=== PATIENT | female | born 1985 | race Caucasian/White ===

== ENCOUNTER 2017-06-03 20:13 | Emergency (ER) | payer BC, MEDICAID, OTHER | END 2017-06-03 22:08 | disposition home or self-care (01) | LOC: ERS 20:13 | DX: L73.9 Follicular disorder, unspecified (principal); L73.1 Pseudofolliculitis barbae; F41.9 Anxiety disorder, unspecified; F32.9 Major depressive disorder, single episode, unspecified; F17.200 Nicotine dependence, unspecified, uncomplicated | CPT/HCPCS: 99406 ==

== ENCOUNTER 2017-06-21 16:18 | Emergency (ER) | payer BC, MEDICAID, OTHER ==
[2017-06-21 16:43] LABS: Bilirubin Negative (Negative); Blood, Urine Large (Negative); Clarity CLOUDY (Clear); Glucose, Urine (Dipstick) Negative (Negative); Leukocyte Negative (Negative); Nitrite Negative (Negative); Protein, Urine (Dipstick) Negative (Neg-Trace); Urobilinogen 0.2 mg/dL (0.2-1.0); pH, Urine 7.5 (5.0-9.0)
[2017-06-21 16:46] LABS: Bacteria/HPF Rare-Few HPF (None Seen); Hyaline Casts/LPF 0-3 HYALINE CAST LPF (0-3 Hyaline); RBC/HPF 21-50 HPF (0-3); Squamous Epithelial 0-3 HPF (0-3); WBC/HPF None Seen HPF (0-3)
[2017-06-21 16:56] LABS: #Basophils 0.1 thou/uL (0.0-0.2); #Eosinphils 0.3 thou/uL (0.0-0.7); #Lymphocytes 3.3 thou/uL (1.20-3.40); #Monocytes 0.7 thou/uL (0.11-0.59); #Neutrophils 10.9 thou/uL (1.40-6.50); %Basophils 0.5 % (0.0-1.0); %Eosinophils 2.1 % (0.0-10.0); %Lymphocytes 21.7 % (21.0-51.0); %Monocytes 4.4 % (0.0-10.0); %Neutrophils 71.3 % (42.0-75.0); Hemoglobin 14.8 g/dL (12.0-16.0); Mean Corpuscular HGB CONC 34.3 g/dL (32.0-36.0); Mean Corpuscular Hemoglobin 31.9 pg (27.0-31.0); Mean Corpuscular Volume 93.1 fl (81.0-99.0); Mean Platelet Volume 6.7 fL (7.4-10.4); Platelet Count 340 thou/uL (130-400); RBC Distribution Width 12.5 % (11.5-14.5); Red Blood Cell (RBC) Count 4.63 mill/uL (4.20-5.40); White Blood Cell (WBC) Count 15.4 thou/uL (4.8-10.8)
[2017-06-21 17:08] LABS: BHCG - Serum POSITIVE (NEGATIVE); Pregs Control Background? CLEAR/WHITE (CLR/WHITE); Pregs Control Bar Appear? YES (CONTROL BAR)
--- NOTE | 2017-06-21 17:22 | ULT ---
TRANSABDOMINAL PELVIC ULTRASOUND WITH COLOR FLOW AND SPECTRAL DOPPLER 06/21/17 HISTORY: Vaginal bleeding. FINDINGS: The uterus measures 11.1 x 7.9 x 9.3 cm. The right ovary measures 2.8 x 2.3 x 2 cm and the left ovary measures 3.2 x 3.1 x 1.7 cm. No adnexal mass is seen. Flow is demonstrated to both ovaries. No free fluid is identified. A single live intrauterine gestation is seen with a crown-rump length of 4.34 cm and gestational sac diameter of 5.17 cm. Estimated gestational age corresponds to 11 weeks, 1 day and PANKAJ at 01/09/18. Fet al heart rate measures 160 beats per minute. IMPRESSION: Single live IUP of 11 weeks, 1 day estimated gestational age and PANKAJ at 01/09/18. POS: BRUCE
[2017-06-26 01:08] LABS: Chlamydia by PCR Not Detected (NotDetected); GC by PCR Not Detected (NotDetected)
== END 2017-06-21 17:30 | disposition home or self-care (01) ==
LOC: ERS 16:18
DX: O20.0 Threatened abortion (principal); F41.9 Anxiety disorder, unspecified; F32.9 Major depressive disorder, single episode, unspecified; F17.210 Nicotine dependence, cigarettes, uncomplicated; Z3A.11 11 weeks gestation of pregnancy
CPT/HCPCS: 36415; 76856; 81003; 81015; 84702; 84703; 85025; 86850; 86900; 86901; 87480; 87491; 87510; 87591; 87660; 93976

== ENCOUNTER 2017-12-25 13:44 | Inpatient (IN) | payer OTHER ==
[2017-12-25 14:19] VITALS: BMI 37.5
[2017-12-25 15:08] LABS: Amnisure Internal Control QC ACCEPTABLE (ACCEPTABLE); Amnisure Test RUPTURE DETECTED (No Rupture)
[2017-12-25] MEDS: Lactated Ringer's 1,000 ML IV SCH ×2 (15:45→17:17)
[2017-12-25] MEDS ORDERED: Ondansetron HCl/PF 4 MG/2 ML Vial IVP PRN (15:48)
[2017-12-25] MEDS ORDERED: Lidocaine 1% (PF) 30 ML VIAL SC PRN (15:48)
[2017-12-25] MEDS ORDERED: Promethazine HCl 25 MG/ML VIAL IM PRN (15:48)
[2017-12-25] MEDS ORDERED: Ibuprofen 800 MG TAB PO PRN (15:48)
--- NOTE | 2017-12-25 15:48 | PDOC.FPROB ---
FMR OB H&P: HPI - History of Present Illness Chief Complaint: loss of fluid Indentification: History of Present Illness: at 37.4 by 6.1wk sono here for loss of fluid. 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 It was clear/milky and she believes she lost about 1/3 of a cup. Denies contractions or VB. Also since gush of fluid has not felt baby move. Denies recent drug use or any other symptoms. Has a pertinent history smoking 1/2 PPD during , +UDS for marijuana, HR HPV (neg 16/18) , GBS+. Primary Care Physician: Dr. Blanchard FMR OB H&P: Current - Care : 3 Para: 1011 Gestational age: 37.4 Due date: 01/11/18 Dating Criteria: 6.1wk sono - OB Labs Blood type: O RH: positive Antibody Screen: negative HIV: negative RPR: negative HepBsAg: negative Rubella: immune Quad screen: unknown Urine drug screen: positive (marijuana) Gonorrhea: negative Chlamydia: negative Pap Smear: HR HPV, negative 16/18 1 hour gtt: failed 3 hour GTT: passed GBS: positive FMR OB H&P: History - Past Medical History PMH: Depression, Methamphetamine use - MENTAL HEALTH AIDE History MENTAL HEALTH AIDE History: 1. 2011: Elective AB 2. 2001: at 40 wks, 7lb9oz - Surgical History Sx History: Denies - Social History Social History: 1/2 ppd during , prior smoked 1PPD x15 years Denies drug use Denies etoh - Family History Family History: Denies FMR OB H&P: Medications - Current Home Medications: Medication Instructions Recorded Confirmed Type BuPROPion XL [Wellbutrin XL] 150 mg PO DAILY 12/25/17 12/25/17 History Allergies/Adverse Reactions: Allergies Allergy/AdvReac Type Severity Reaction Status Date / Time cephalexin [From Keflex] Allergy Intermediate Rash Verified 12/25/17 14:13 FMR OB H&P: ROS - Review of Systems General: denies: fever/chills, weight/appetite/sleep changes Eyes: denies: vision changes, double vision ENT: denies: nasal congestion, rhinorrhea Cardiovascular: denies: chest pain, edema, orthopnea Respiratory: denies: cough, congestion, shortness of breath Gastrointestinal: denies: abdominal pain, cramping, nausea, diarrhea Genitourinary (Female): reports: other (clear vaginal fluid loss). denies: vaginal bleeding, vaginal pressure Musculoskeletal: denies: redness, decrease range of motion, arthritis/ arthralgias Neurologic: denies: seizures, weakness Hematologic/Lymphatic: denies: prolonged or excessive bleeding FMR OB H&P: Vital Signs - Maternal Vital signs: Vital Signs - First Documented Temp Pulse Resp BP 98.1 F 86 16 137/85 12/25/17 14:11 12/25/17 14:11 12/25/17 14:11 12/25/17 14:11 - Heart Tones Baseline: 130 Variability: moderate Acceleration: absent Deceleration: absent Category: category 1 FMR OB H&P: Physical Exam - Physical Exam General: NAD, awake, alert and oriented HEENT: normocephalic and atraumatic, PERRLA, EOMI, MMM, conjunctiva clear, no scleral icterus Neck: supple, FROM Chest: no lesions Heart: normal S1/S2, no murmurs/rubs/gallops General: CTAB, no respiratory distress, good air movement Abdomen: gravid, non-tender Musculoskeletal: normal gait and station, pulses present Skin: no rash, good tugor, capillary refill <2 seconds Lymphatic: no unusual bruising or bleeding, no petechia Psychiatric: intact recent and remote memory, good judgement and insight FMR OB H&P: Results - Labs Lab results: Laboratory Results - last 24 hr 12/25/17 15:05 Amnio Swab Test RUPTURE DETECTED H FMR OB H&P: A/P - Problem List (1) Intrauterine Current Visit: Yes Status: Acute Code(s): Z34.90 - ENCNTR FOR SUPRVSN OF NORMAL , UNSP, UNSP TRIMESTER (2) Marijuana abuse Current Visit: Yes Status: Acute Code(s): F12.10 - CANNABIS ABUSE, UNCOMPLICATED (3) Positive GBS test Current Visit: Yes Status: Acute Code(s): B95.1 - STREPTOCOCCUS, GROUP B, CAUSING DISEASES CLASSD ELSWHR (4) Glucose intolerance Current Visit: Yes Status: Acute Code(s): E74.39 - OTHER DISORDERS OF INTESTINAL CARBOHYDRATE ABSORPTION (5) Depression Current Visit: Yes Status: Acute Code(s): F32.9 - MAJOR DEPRESSIVE DISORDER , SINGLE EPISODE, UNSPECIFIED (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 1. Pre-labor ROM, IOL -ROM at 1330 (12/25) -[facility] Cat I -2/50/-3 @1600 -Uterine irritability, no CTX as of now -[place] 3 -Plan: Plan to admit for IOL. Will give Cytotec 25mcg x1, reassess in 2 hours. If cervix favorable, will start on pitocin to induce contractions 2. GBS+ -Will start PCN ppx with pitocin -Continue q4hr until completion of delivery 3. Hx of UDS + for marijuana -Will reorder UDS 4. Glucose intolerance -Failed 1hrGTT, passed 3hr -No accuchecks needed at this time 5. Hx of Bacterial vaginitis s/p tx 6. Depression -Has been on wellbutrin, will hold for now while NPO 7. Smoking during -Counseled on tobacco cessation -Last growth U/S on 11/19 was at 61.7% 8. High risk HPV, Negative 16/18 -No intervention at this time -Will delinquency counselor on getting colposcopy This H&P was discussed with Dr. Benson who agree with the above documentation and plan. Attending Addendum - Attending Addendum Date/Time: 12/25/17 4247 I personally evaluated the patient and discussed the management with Dr. Plata. I agree with the History, Examination, Assessment and Plan documented above with any addition or exceptions noted below. After further discussion with Dr Heller we will reconsider the use of PNC fo GBS prophylaxis. We may choose vancomycin.
[2017-12-25] MEDS ORDERED: Misoprostol 100 MCG TAB ONE (16:00)
[2017-12-25] MEDS ORDERED: Misoprostol 100 MCG TAB VAG SCH (16:00)
[2017-12-25] MEDS ORDERED: Penicillin G Potassium 5 MILL.UNITS in Sodium Chloride 0.9% 100 ML IVPB SCH (16:00)
[2017-12-25 16:04] LABS: Mean Corpuscular HGB CONC 34.3 g/dL (32.0-36.0); Mean Corpuscular Hemoglobin 30.6 pg (27.0-31.0); Mean Platelet Volume 7.7 fL (7.4-10.4); Platelet Count 352 thou/uL (130-400); RBC Distribution Width 12.9 % (11.5-14.5); Red Blood Cell (RBC) Count 3.94 mill/uL (4.20-5.40); White Blood Cell (WBC) Count 10.5 thou/uL (4.8-10.8)
[2017-12-25 16:41] LABS: Amphetamine Not Detected (NotDetected); Barbiturates Screen Not Detected (NotDetected); Benzodiazepine Screen Not Detected (NotDetected); Cocaine Metabolite Screen Not Detected (NotDetected); Medtox Reader # READER 1; Methadone Not Detected (NotDetected); Methamphetamine Not Detected (NotDetected); Opiate Screen Not Detected (NotDetected); Oxycodone Screen Not Detected (NotDetected); Phencyclidine (PCP) Not Detected (NotDetected); THC/Cannabinoid Screen Not Detected (NotDetected); Tricyclic Screen Not Detected (NotDetected)
[2017-12-25 16:42] LABS: Medtox Control Line Valid? VALID (VALID)
[2017-12-25 16:42] LABS: HBSAg Index 0.18 S/CO (0-0.99); Hep B Surf Ag Non-Reactive S/CO (NonReactive); Syphilis Antibody Nonreactive (Nonreactive); Syphilis Antibody Index 0.04 S/CO (<1.00 Non-Reactive)
[2017-12-25] MEDS ORDERED: Bupivacaine 0.5% 20 ML, fentaNYL Citrate/PF 400 MCG in Sodium Chloride 0.9% 72 ML EPIDURAL SCH (18:00)
[2017-12-25] MEDS ORDERED: DISCONTINUE ALL PREVIOUS NARCOTICS FS SCH (18:00)
--- NOTE | 2017-12-25 20:45 | PDOC.LDPN ---
Labor & Delivery Progress Note - Subjective Subjective: comfortable, painful contractions - Objective Vital signs reviewed and normal: yes General: resting Dilation: 7 Effacement: 90% Station: -1 FHT: category 1 [place] contractions every: 4min Resuscitative measures: maternal IV fluids - Assessment (1) Intrauterine Code(s): Z34.90 - ENCNTR FOR SUPRVSN OF NORMAL , UNSP, UNSP TRIMESTER Status: Acute Plan: continue plan of care -: Pt had one SBP 147 but returned back to 130's pt reports some continued discomfort with contractions will monitor. recheck for cervical dialation in 2 hours <Angel Yu - Last Filed: 12/25/17 20:43> Attending Addendum - Attending Addendum Date/Time: 12/25/172039 I personally evaluated the patient and discussed the management with Dr. Yu and Dr. Matt I agree with the History, Examination, Assessment and Plan documented above with any addition or exceptions noted below. 32 yo female at 37.4 wks by 6.1 wk sono admitted for PROM. Doing well. Epidural for pain control. Cephalic. On Vanc for GBS ppx and beta lactam allergy. FHT cat 1. Now 7 cm. s/p miso x 1. Now with spontaneous regular contractions. No VB. Elevated BP x1. Asymptomatic. Will continue to monitor closely. If continues will workup for preeclampsia/gHTN. hx of glucose intolerance. POC WNL. Repeat exam in 2 hours. ABrayMD <Edwige Heller - Last Filed: 12/29/17 13:44>
[2017-12-25] MEDS ORDERED: Vancomycin HCl 1 GM in Premix Bag 1 BAG IVPB SCH (21:00)
[2017-12-25] MEDS ORDERED: Penicillin G 2.5 MILL.units 2.5 MILL.UNITS in Premix Bag 1 BAG IVPB SCH (21:00)
[2017-12-25] MEDS: NS / Oxytocin 40 units/1000ml 1,000 ML IV PRN ×2 (21:24→23:55)
--- NOTE | 2017-12-25 22:06 | PDOC.OPDEL ---
OB Operative/Delivery Note Delivery Dr/Surgeon: Rogerio Yu Bray Pre-Delivery Diagnosis: active labor Procedure/Post Delivery Dx: spontaneous vaginal delivery Weeks gestation: 37 (37.4) Anesthesia: epidural - Additional Findings/Plan Placenta delivered: spontaneous Repaired Obstetrical Laceration: periurethral (repaired with three interupted sutres) Estimated blood loss: 271 Compilations/Other Findings: Delivery Note: This is 32yo F @ 37.4wks who delivered a viable F at 2114 on 12/25/2017. Following an antepartum course complicated by PROM, a vigorous F was delivered over an intact perineum in the occipitoanterior position. Anterior Shoulder and then remainder of the body delivered. No nuchal cord. The head was held down. Cord clamped after delayed cord clamping and cut and cord blood collected. Placenta delivered intact in the [place] presentation with a 3 vessel cord and blood clot noted, placenta sent for pathology eval for abruption. Fundal massage was performed and the fundus was firm. The cervix and vagina were inspected and found one small non hemostatic periurethral laceration. Laceration repaired with 3 interupted sutures in the usual fashion with good approximation and hemostasis . Infant went to nursery in good condition for routine care. Apgars were 8/9 at 1 & 5 minutes, respectively. Patient tolerated delivery well and went to after routine recovery/ care. Post delivery plan: routine recovery <Angel Yu - Last Filed: 12/25/17 22:04> Attending Addendum - Attending Addendum Date/Time: 12/25/17 9625 I personally evaluated the patient and discussed the management with Dr. Yu , Dr. Beatty, and Dr. Matt I agree with the History, Examination, Assessment and Plan documented above with any addition or exceptions noted below. I was present and participated in the delivery of a viable female infant. Placenta appeared to have possible small acute vs subacute abruption. Sent to path. Periurethral laceration easily repaired. No other complications. Will continue to monitor BP closely due to previously elevated BP peripartum. Otherwise routine care. ABrhaoMD <Edwige Heller - Last Filed: 12/29/17 13:49>
[2017-12-25] MEDS ORDERED: Bupivacaine/Epinephrine 0.25% 30 ML VIAL ONE (22:22)
[2017-12-25 22:57] LABS: Hemoglobin 11.7 g/dL (12.0-16.0); Mean Corpuscular HGB CONC 34.7 g/dL (32.0-36.0); Mean Corpuscular Hemoglobin 30.8 pg (27.0-31.0); Mean Platelet Volume 7.3 fL (7.4-10.4); Platelet Count 327 thou/uL (130-400); RBC Distribution Width 12.8 % (11.5-14.5); White Blood Cell (WBC) Count 16.7 thou/uL (4.8-10.8)
[2017-12-25 23:05] LABS: Band 17 % (5-11); Eosinophils 1 % (0-10); Lymphocytes 8 % (21-51); MDiff Complete? YES; Monocytes 6 % (0-10); Neutrophil 68 % (42-75)
[2017-12-25 23:07] LABS: ALT (SGPT) 9 U/L (8-55); AST (SGOT) 14 U/L (5-34); Alkaline Phosphatase 207 U/L (40-150); Anion Gap 12 mmol/L (10-20); BUN (Urea Nitrogen) 6 mg/dL (7.0-18.7); Bilirubin, Total 0.4 mg/dL (0.2-1.2); Calc. Creatinine Clearance 189 mL/min (70-130); Calcium 8.2 mg/dL (7.8-10.44); Carbon Dioxide 19 mmol/L (22-29); Chloride 106 mmol/L (98-107); Estimated GFR-MDRD Greater than 90; Glucose 83 mg/dL (70-105); Potassium 3.9 mmol/L (3.5-5.1); Sodium 133 mmol/L (136-145)
[2017-12-25 23:34] LABS: Creatinine, Urine 167.16 mg/dL (47-110)
[2017-12-26] MEDS ORDERED: NS / Oxytocin 40 units/1000ml 1,000 ML IV SCH (01:04)
[2017-12-26] MEDS ORDERED: Benzocaine/Menthol 20-0.5% 60 ML CAN TOP PRN (01:04)
[2017-12-26] MEDS ORDERED: Milk Of Magnesia 30 ML UDCUP PO PRN (01:04)
[2017-12-26] MEDS ORDERED: Ondansetron HCl/PF 4 MG/2 ML Vial IVP PRN (01:04)
[2017-12-26] MEDS ORDERED: Bisacodyl 10 MG SUPP PR PRN (01:04)
[2017-12-26] MEDS ORDERED: Acetaminophen/Codeine 30-300mg Tablet PO PRN (01:04)
[2017-12-26] MEDS: Acetaminophen 325 MG TAB PO PRN ×2 (04:45→11:54)
--- NOTE | 2017-12-26 08:03 | PDOC.PP ---
Addendum entered and electronically signed by Kenisha Plata MD 12/26/17 12:01 : After clarifying with nurse, four pads were not completely soaked through and deemed appropriate amount of post lochia. As of now, patient is asymptomatic, and has reported that bleeding has significantly lightened not requiring pad change since this morning. If pt continue soaking through multiple pads today or becomes symptomatic or has VS changes, will order AM hemagram. Low concern since pt did not have PPH. Original Note: Post Progress Note Post Day #: 1 Subjective: No complaints overnight, denies pain currently. Per nurse reports vaginal bleeding soaking through 4 pads since delivery. Ambulating, voiding with no problems. Plans on solely bottle feeding since currently on anti-depressant. No concerns at this time. PO intake tolerated: yes Flatus: no Ambulation: yes Vital Signs (12 hours) Temp Pulse Resp BP 12/26/17 04:30 98.3 F 84 20 141/78 H 12/26/17 01:45 98.3 F 70 20 136/79 12/26/17 00:40 98.3 F 75 20 129/83 Weight Weight 92.986 kg - Physical Examination General: NAD Cardiovascular: RRR Respiratory: non-labored breathing Deviation from normal: no TTP Neurological: no gross focal deficits Psychiatric: A&Ox3, normal affect Result Diagrams: 12/25/17 22:36 12/25/17 22:36 Additional Labs: Post Labs Blood Type O POSITIVE 12/25/17 15:47 Hep Bs Antigen Non-Reactive S/CO (NonReactive) 12/25/17 15:47 (1) Intrauterine Code(s): Z34.90 - ENCNTR FOR SUPRVSN OF NORMAL , UNSP, UNSP TRIMESTER Status: Acute (2) Marijuana abuse Code(s): F12.10 - CANNABIS ABUSE, UNCOMPLICATED Status: Acute (3) Positive GBS test Code(s): B95.1 - STREPTOCOCCUS, GROUP B, CAUSING DISEASES CLASSD ELSWHR Status : Acute (4) Glucose intolerance Code(s): E74.39 - OTHER DISORDERS OF INTESTINAL CARBOHYDRATE ABSORPTION Status : Acute (5) Depression Code(s): F32.9 - MAJOR DEPRESSIVE DISORDER, SINGLE EPISODE, UNSPECIFIED Status : Acute (6) High risk HPV infection Code(s): B97.7 - PAPILLOMAVIRUS THE CAUSE OF DISEASES CLASSIFIED ELSEWHERE Status: Acute (7) Tobacco abuse Code(s): Z72.0 - TOBACCO USE Status: Acute - Assessment/Plan 1. s/p term with periurethral tear -Voiding with no complaints, ambulating, po tolerating -Tylenol for pain, pt does not want any pain meds with codeine/narcotics at this time since in drug recovery -Plans on solely bottle feeding 2. Pre-Eclampsia intrapartum -Aside from isolated SBP at 141/78. Repeat BP showed SBP in 120s. -Denies MCKINLEY, chest pain, vision changes -High SBP likely due to anxiety pt is feeling since worried about baby -However, will continue to closely monitor BPs with q4hr, if concern for preE, will increase frequency of checks, consider Mg/anti- hypertensives in hospital or depending on course 2. MDD -Currently on Wellbutrin 3. Tobacco abuse -Currently not smoking, pt not requesting so no need for nicotine replacement at this time 4. Hx of HR HPV Infection, Negative -Plan for outpt colposcopy and further workup as needed 5. GBS + -Pt received 1g vancomycin x1 during labor <Kenisha Plata - Last Filed: 12/26/17 10:42> Vital Signs (12 hours) Temp Pulse Resp BP Pulse Ox 12/27/17 07:36 97.7 F 86 18 140/90 86 L 12/27/17 04:25 97 125/75 Weight Weight 92.986 kg Result Diagrams: 12/25/17 22:36 12/25/17 22:36 Additional Labs: Post Labs Blood Type O POSITIVE 12/25/17 15:47 Hep Bs Antigen Non-Reactive S/CO (NonReactive) 12/25/17 15:47 (1) Intrauterine Code(s): Z34.90 - ENCNTR FOR SUPRVSN OF NORMAL , UNSP, UNSP TRIMESTER Status: Acute (2) Marijuana abuse Code(s): F12.10 - CANNABIS ABUSE, UNCOMPLICATED Status: Acute (3) Positive GBS test Code(s): B95.1 - STREPTOCOCCUS, GROUP B, CAUSING DISEASES CLASSD ELSWHR Status : Acute (4) Glucose intolerance Code(s): E74.39 - OTHER DISORDERS OF INTESTINAL CARBOHYDRATE ABSORPTION Status : Acute (5) Depression Code(s): F32.9 - MAJOR DEPRESSIVE DISORDER, SINGLE EPISODE, UNSPECIFIED Status : Acute (6) High risk HPV infection Code(s): B97.7 - PAPILLOMAVIRUS THE CAUSE OF DISEASES CLASSIFIED ELSEWHERE Status: Acute (7) Tobacco abuse Code(s): Z72.0 - TOBACCO USE Status: Acute <Bartolo Benson - Last Filed: 12/27/17 08:51> Attending Addendum - Attending Addendum Date/Time: 12/27/1751 I personally evaluated the patient and discussed the management with Dr. Plata yesterday. I agree with the History, Examination, Assessment and Plan documented above with any addition or exceptions noted below. <Bartolo Benson - Last Filed: 12/27/17 08:51>
[2017-12-26] MEDS: Docusate Calcium (SURFAK) 240 MG CAP PO SCH ×2 (08:59→21:36)
[2017-12-26] MEDS: Prenatal Vitamin 1 TAB PO SCH (08:59)
[2017-12-26] MEDS: Bupropion 150 MG XL TAB PO SCH (08:59)
--- NOTE | 2017-12-26 12:04 | PDOC.EVN ---
Event Note - Event Note Event Note: Baby not tolerating similac immune formula. Has taken in approximatley 35cc since , but spit up most of it per mom and nurse. Repeat VS are stable. Glucose >60. Will switch to similac sensitive and see how baby tolerates, if not consider further gi workup with u/s. baby has voided and stooled multiple times.
[2017-12-26] MEDS ORDERED: Ibuprofen 600 MG TAB PO SCH (17:30)
[2017-12-26 23:50] VITALS: TEMP 97.7
--- NOTE | 2017-12-27 06:51 | PDOC.PP ---
Post Progress Note Post Day #: 2 Subjective: No acute events overnight. Pt. was given motrin 600mg x1 with relief of back pain. Minimal vaginal lochia, reported as light, no clots, non-concerning. Ambulating and voiding without issues. Still has not had bowel movement, says she usually has cup of coffee to help her go. Denies abdominal tenderness or feeling constipated. PO intake tolerated: yes Flatus: no Ambulation: yes Vital Signs (12 hours) Temp Pulse Resp BP Pulse Ox 12/27/17 04:25 97 125/75 12/26/17 20:13 97.7 F 88 18 145/68 H 97 Weight Weight 92.986 kg - Physical Examination General: NAD Cardiovascular: RRR Respiratory: non-labored breathing Abdominal: lochia, no distention Neurological: no gross focal deficits Psychiatric: A&Ox3, normal affect Result Diagrams: 12/25/17 22:36 12/25/17 22:36 Additional Labs: Post Labs Blood Type O POSITIVE 12/25/17 15:47 Hep Bs Antigen Non-Reactive S/CO (NonReactive) 12/25/17 15:47 (1) Intrauterine Code(s): Z34.90 - ENCNTR FOR SUPRVSN OF NORMAL , UNSP, UNSP TRIMESTER Status: Acute (2) Marijuana abuse Code(s): F12.10 - CANNABIS ABUSE, UNCOMPLICATED Status: Acute (3) Positive GBS test Code(s): B95.1 - STREPTOCOCCUS, GROUP B, CAUSING DISEASES CLASSD ELSWHR Status : Acute (4) Glucose intolerance Code(s): E74.39 - OTHER DISORDERS OF INTESTINAL CARBOHYDRATE ABSORPTION Status : Acute (5) Depression Code(s): F32.9 - MAJOR DEPRESSIVE DISORDER, SINGLE EPISODE, UNSPECIFIED Status : Acute (6) High risk HPV infection Code(s): B97.7 - PAPILLOMAVIRUS THE CAUSE OF DISEASES CLASSIFIED ELSEWHERE Status: Acute (7) Tobacco abuse Code(s): Z72.0 - TOBACCO USE Status: Acute - Assessment/Plan 1. s/p term with periurethral tear -Voiding with no complaints, ambulating, po tolerating -Tylenol for pain,reports adequately controlled -Plans on solely bottle feeding with similac sensitive 2. Pre-Eclampsia intrapartum -Isolated elevated SBP of 145/68 last evening, was given motrin for back pain 1 hour prior, isolated SBP of 140, repeat was 130s. -Denied MCKINLEY, chest pain, vision changes during that time as well as this AM -Will not give motrin and will continue to closely monitor BPs with q4hr checks. If concern for development of preE will consider Mg. -Counseled on warning signs and importance of monitoring for elevated BPs/sxs of preeclampsia; counseled pt not to take motrin for now 2. MDD -Currently on Wellbutrin 3. Tobacco abuse -Currently not smoking, pt not requesting so no need for nicotine replacement at this time -Counseled on passive smoking exposure with baby 4. Hx of HR HPV Infection, Negative -Plan for outpt colposcopy and further workup as needed 5. GBS + -Pt received 1g vancomycin x1 during labor due to cephalexin allergy -Pt. VSS 6. Constipation -Docusate not working despite multiple doses -Pt. states coffee usually helps with BM, but hasn't had any. Plans to drink cup of coffee today to help BM; will plan to give senekot Dispo: plan to d/c today if has BM. will f/u with dr. blanco in 2 weeks for visit. <PlataEricKenisha - Last Filed: 12/27/17 11:00> Weight Weight 92.986 kg Result Diagrams: 12/25/17 22:36 12/25/17 22:36 Additional Labs: Post Labs Blood Type O POSITIVE 12/25/17 15:47 Hep Bs Antigen Non-Reactive S/CO (NonReactive) 12/25/17 15:47 (1) Intrauterine Code(s): Z34.90 - ENCNTR FOR SUPRVSN OF NORMAL , UNSP, UNSP TRIMESTER Status: Acute (2) Marijuana abuse Code(s): F12.10 - CANNABIS ABUSE, UNCOMPLICATED Status: Acute (3) Positive GBS test Code(s): B95.1 - STREPTOCOCCUS, GROUP B, CAUSING DISEASES CLASSD ELSWHR Status : Acute (4) Glucose intolerance Code(s): E74.39 - OTHER DISORDERS OF INTESTINAL CARBOHYDRATE ABSORPTION Status : Acute (5) Depression Code(s): F32.9 - MAJOR DEPRESSIVE DISORDER, SINGLE EPISODE, UNSPECIFIED Status : Acute (6) High risk HPV infection Code(s): B97.7 - PAPILLOMAVIRUS THE CAUSE OF DISEASES CLASSIFIED ELSEWHERE Status: Acute (7) Tobacco abuse Code(s): Z72.0 - TOBACCO USE Status: Acute <Bartolo Benson - Last Filed: 12/28/17 09:53> Attending Addendum - Attending Addendum Date/Time: 12/28/17 0953 I personally evaluated the patient and discussed the management with Dr. Plata yesterday. I agree with the History, Examination, Assessment and Plan documented above with any addition or exceptions noted below. <Bartolo Benson - Last Filed: 12/28/17 09:53>
[2017-12-27 08:14] VITALS: BP 140/90
[2017-12-27] MEDS ORDERED: Senokot 8.6 MG TAB PO SCH (09:00)
[2017-12-27] MEDS: Docusate Calcium (SURFAK) 240 MG CAP PO SCH (09:09)
[2017-12-27] MEDS: Prenatal Vitamin 1 TAB PO SCH (09:09)
[2017-12-27] MEDS: Bupropion 150 MG XL TAB PO SCH (10:25)
== END 2017-12-27 12:25 | disposition home or self-care (01) | DRG 775 ==
LOC: L&D/OP 13:44 → L&D 16:56 → 3SW 12-26 00:40
PROVIDERS: ADMIT Family Medicine; ATTEND Family Medicine
PROC: 10E0XZZ Delivery of Products of Conception, External Approach (ICD-10-PCS; principal; 2017-12-25)
PROC: 0UQMXZZ Repair Vulva, External Approach (ICD-10-PCS; 2017-12-25)
DX: O42.92 Full-term premature rupture of membranes, unspecified as to length of time between rupture and onset of labor (principal); O70.9 Perineal laceration during delivery, unspecified; Z3A.37 37 weeks gestation of pregnancy; Z37.0 Single live birth
CPT/HCPCS: 36415; 36416; 51702; 80053; 80306; 82570; 84112; 84156; 85027; 86780; 86850; 86900; 86901; 87340; 99285; J2001; J3010; J3370; J3490; J7050

== ENCOUNTER 2018-04-13 17:29 | Emergency (ER) | payer OTHER, SELFPAY ==
[2018-04-13] MEDS ORDERED: Lidocaine 1% w/Epinephrine 1:100K 20 ML VIAL ONE (18:23)
[2018-04-13] MEDS ORDERED: Ketorolac Tromethamine 30 MG/ML VIAL ONE (18:25)
== END 2018-04-13 19:05 | disposition home or self-care (01) ==
LOC: ERS 17:29
DX: K04.7 Periapical abscess without sinus (principal); F41.9 Anxiety disorder, unspecified; F32.9 Major depressive disorder, single episode, unspecified; F17.210 Nicotine dependence, cigarettes, uncomplicated; Z79.899 Other long term (current) drug therapy
CPT/HCPCS: 40800; 96372; J1885; J2001

== ENCOUNTER 2021-07-18 18:08 | Emergency (ER) | payer SELFPAY ==
[2021-07-18] MEDS ORDERED: Clindamycin 150 MG CAP ONE (19:03)
[2021-07-18] MEDS ORDERED: Boostrix 0.5 ML (Tdap) VIAL ONE (19:04)
== END 2021-07-18 19:19 | disposition home or self-care (01) ==
LOC: ERS 18:08
DX: L03.114 Cellulitis of left upper limb (principal); F17.210 Nicotine dependence, cigarettes, uncomplicated
CPT/HCPCS: 90471; 90715; 99283

== ENCOUNTER 2022-03-05 16:08 | Emergency (ER) | payer SELFPAY ==
[2022-03-05] MEDS ORDERED: Acetaminophen 500 MG TAB ONE (16:34)
== END 2022-03-05 19:25 | disposition home or self-care (01) ==
LOC: ERS 16:08
DX: J11.1 Influenza due to unidentified influenza virus with other respiratory manifestations (principal); F17.210 Nicotine dependence, cigarettes, uncomplicated
CPT/HCPCS: 87804; 99284